=== PATIENT | female | born 1960 | race Asian ===

== ENCOUNTER 2020-05-02 11:00 | Outpatient (CLI) | payer OTHER, SELFPAY ==
--- NOTE | ~2020-05-02 | MM_ITS ---
EXAMINATION: MM screening rena BI w wes HISTORY: Screening mammogram TECHNIQUE: Craniocaudal and mediolateral oblique 3-D tomosynthesis images were obtained and synthetic 2-D images were generated. CAD analysis was submitted and interpreted. COMPARISON: 04/29/2018 BREAST PARENCHYMAL COMPOSITION: The breasts are heterogeneously dense, which may obscure small masses . FINDINGS: There is no evidence of suspicious mass, calcification, or architectural distortion to sugg est malignancy in either breast. There has been no suspicious interval change. IMPRESSION: 1. No mammographic evidence of malignancy. 2. Recommend routine screening mammography in one year. BI-RADS Category 1: Negative Reviewed, dictated and finalized at location A. [employer] INSPECTOR
--- NOTE | ~2020-05-02 | US_ITS ---
EXAMINATION: US right upper quadrant DATE: 05/02/2020 11:34 INDICATION: Abnormal liver function tests. TECHNIQUE: Multiple grayscale and Doppler ultrasound images of the abdomen were obtained. COMPARISON: None FINDINGS: The visualized portions of the head, body, and tail of the pancreas are normal. The liver i s normal without focal lesion. No liver surface nodularity. There is normal flow in main portal vein. The gallbladder is normal in size. No gallstones or gallbladder wall thickening. There was no sonogr aphic Navarro sign. The common duct is normal and measures 3 mm. IMPRESSION: 1. Normal right upper quadrant ultrasound. Reviewed, dictated and finalized at location A. [employer]
== END 2020-05-02 11:01 | disposition home or self-care (01) ==
PROVIDERS: PCP Emergency Medicine; Visit Provider Emergency Medicine
DX: Z12.31 Encounter for screening mammogram for malignant neoplasm of breast (principal); R74.8 Abnormal levels of other serum enzymes
CPT/HCPCS: 76705; 77063; 77067

== ENCOUNTER → 2020-08-06 00:34 | Outpatient (CLI) | payer OTHER, SELFPAY ==
[2020-08-06 19:41] LABS: SARS-CoV-2 RNA PCR Negative
== END ==
PROVIDERS: PCP Emergency Medicine; Visit Provider Internal Medicine Critical Care Medicine
DX: Z01.812 Encounter for preprocedural laboratory examination (principal); Z20.822 Contact with and (suspected) exposure to COVID-19
CPT/HCPCS: C9803; U0003; U0005

== ENCOUNTER 2020-08-08 08:35 | Outpatient (CLI) | payer OTHER, SELFPAY ==
--- NOTE | 2020-08-22 15:49 | WPDSLEEPSTUD ---
Sleep Study Date of Study: 08/08/20 Ordering Provider: Peggy Elena MD Interpreting Physician: Peggy Elena MD Sleep Study Type: Polysomnogram Height: 1.59 m Weight: 47.627 kg Body Mass Index: 18.8 [place]: 3 Reason for Sleep Study Difficulty falling asleep Sleep History Brandon Fiore is a 60 year old female with severe difficulty falling asleep. She wakes up throughout the night. She does not snore and no one tells her that she snores loudly. She does not awaken from sleep feeling short of breath, does not awaken with heartburn, belching or coughing. She frequently has trouble sleeping with a cold. She does not wake up gasping for breath at night. She does not have breathing problems at night witnessed by others. She frequently sweats excessively at night. She rarely notices her heart pounding or beating irregularly at night. She does not fall asleep during the day. She rarely falls asleep involuntarily. She does not fall asleep while driving. She does not fall asleep while exerting physical effort. She does not have loss of muscle tone was strong emotion. She rarely has daytime difficulties due to excessive sleepiness. She does not feel paralyzed on waking or falling asleep. She does not have vivid dreamlike scenes upon awakening or falling asleep. She is not afraid to go to sleep. She does not have nightmares. She occasionally remembers her dreams. She frequently has racing thoughts. She rarely feels sad depressed or anxious. She occasionally has muscular tension. She occasionally notices parts of her body jerking. She frequently kicks at night. She frequently has crawling and aching feelings in her legs and leg pain during the night. She rarely has morning jaw pain. She does not grind her teeth during sleep. She is not bothered by pain during the day and is not awakened by pain during the night. She rarely wakes up feeling stiff in the morning, rarely has sore or achy muscles and rarely wakes up with pain in the neck and spine. She has gained 5 lbs in the last year. Normal bedtime is 11:30 p.m. taking 2 hours to fall asleep waking up twice at night with difficulty returning to sleep. She wakes in the morning at 7:00 a.m.. Weekend schedule is the same. She estimates getting only 2-3 hours of sleep at night. She does not take naps. She frequently has morning headaches. Only on occasion does she awaken feeling refreshed. She rarely has daytime sleepiness. She occasionally has memory or concentration problems. [facility] Past Medical History Medical History Anxiety delivery delivered Diabetes Hyperlipidemia Insomnia Sleep disorder Surgical History Surgical History History of cataract surgery Social History Social History Smoking status: Never smoker Alcohol intake: never Substance use: never Medications Home Medications Medication Instructions Recorded Confirmed Type cholecalciferol (vitamin D3) 25 25 mcg PO DAILY 04/15/20 History mcg (1,000 unit) capsule simvastatin 20 mg tablet 20 mg PO DAILY 07/08/20 History Sleep Procedure This test was performed using the [employer] multiple channel system including EOG, EEG, submental EMG, EKG, nasal and oral airflow using thermistors and nasal pressure sensors, chest and abdominal belts for body position data, and pulse oximetry. Video monitoring was also performed. The study was scored using CMS guidelines. She took a Lunesta 1 mg at sleep onset. Sleep Architecture The total recording time was 501.2 minutes. Sleep time is 439.3 minutes. sleep efficiency is 87.6%. Sleep latency is short at 4.9 minutes. REM latency is delayed 159 minutes. She had 46 awakenings and spent 11.5% the study awake after sleep onset, 57 minutes. Sleep architecture showed 8.4% stage 1 sl
[2020-08-25 08:59] VITALS: BMI 18.8
== END 2020-08-08 08:36 | disposition home or self-care (01) ==
LOC: ANHCSM 08:35
PROVIDERS: PCP Emergency Medicine; Visit Provider Internal Medicine Critical Care Medicine
DX: G25.81 Restless legs syndrome (principal); G47.61 Periodic limb movement disorder
CPT/HCPCS: 95810

== ENCOUNTER 2021-05-22 11:18 | Outpatient (CLI) | payer OTHER, SELFPAY ==
--- NOTE | ~2021-05-22 | US_ITS ---
US right upper quadrant INDICATION: Gated liver function tests PROCEDURE: Realtime right upper abdominal ultrasound. COMPARISON: No prior studies for comparison. FINDINGS: The pancreas is normal without focal mass or pancreatic ductal dilation. Liver echotexture is normal without focal mass or intrahepatic biliary dilatation. There is normal directional flow i n the portal vein. The gallbladder is normal without stones, gallbladder wall thickening or pericholecystic fluid. Comm on bile duct measures 2.4 mm. No sonographic Navarro's sign. IMPRESSION: 1: Normal limited abdominal ultrasound. Reviewed, dictated and finalized at location A. [employer] AGENT
== END 2021-05-22 11:19 | disposition home or self-care (01) ==
LOC: ANHIMG 11:23
PROVIDERS: PCP Emergency Medicine; Visit Provider Internal Medicine Gastroenterology
DX: R94.5 Abnormal results of liver function studies (principal)
CPT/HCPCS: 76705

== ENCOUNTER 2022-01-11 10:58 | Outpatient (CLI) | payer OTHER, SELFPAY ==
--- NOTE | ~2022-01-11 | XR_ITS ---
EXAMINATION: XR chest 2V 01/11/2022 11:44 INDICATION: Cough. PROCEDURE: 2 view chest COMPARISON: No prior studies for comparison. FINDINGS: The lungs are clear. The cardiomediastinal silhouette is within normal limits. There are no pleural effusions. There is no pneumothorax suspected. IMPRESSION: 1: NO ACUTE CARDIOPULMONARY DISEASE. Reviewed, dictated and finalized at location A.
--- NOTE | ~2022-01-11 | MM_ITS ---
EXAMINATION: MM screening rena BI w wes HISTORY: Screening mammogram TECHNIQUE: Craniocaudal and mediolateral oblique 3-D tomosynthesis images were obtained and synthetic 2-D images were generated. CAD analysis was submitted and interpreted. COMPARISON: 05/02/2020, 04/29/2018 bilateral screening mammogram examinations BREAST PARENCHYMAL COMPOSITION: The breasts are heterogeneously dense, which may obscure small masses . FINDINGS: There is no evidence of suspicious mass, calcification, or architectural distortion to sugg est malignancy in either breast. There has been no suspicious interval change. IMPRESSION: 1. No mammographic evidence of malignancy. 2. Recommend routine screening mammography in one year. BI-RADS Category 1: Negative Reviewed, dictated and finalized at location A.
== END 2022-01-11 10:59 | disposition home or self-care (01) ==
PROVIDERS: PCP Emergency Medicine; Visit Provider Emergency Medicine
DX: Z12.31 Encounter for screening mammogram for malignant neoplasm of breast (principal); R05.9 Cough, unspecified
CPT/HCPCS: 71046; 77063; 77067

== ENCOUNTER 2023-11-10 15:32 | Outpatient (CLI) | payer OTHER, SELFPAY ==
--- NOTE | ~2023-11-10 | MM_ITS ---
EXAMINATION: MM screening rena BI w wes HISTORY: Screening TECHNIQUE: Craniocaudal and mediolateral oblique 3-D tomosynthesis images were obtained and synthetic 2-D images were generated. CAD analysis was submitted and interpreted. COMPARISON: Comparison to multiple prior studies sequentially, with oldest reviewed study dated 04/20. BREAST PARENCHYMAL COMPOSITION: The breasts are heterogeneously dense, which may obscure small masses . FINDINGS: There is no evidence of suspicious mass, calcification, or architectural distortion to sugg est malignancy in either breast. There has been no suspicious interval change. IMPRESSION: 1. No mammographic evidence of malignancy. 2. Recommend routine screening mammography in one year. BI-RADS Category 1: Negative Reviewed, dictated and finalized at location A.
--- NOTE | ~2023-11-10 | DEXA_ITS ---
Bone Density Report Name: ISHA MIRANDA Age: 63 Sex: Female Ethnicity: White Date of : 1960 Indication: postmenopausal; screening for osteoporosis; Referring Provider: IRA MARIE Study: Bone densitometry was performed. Exam Date: November 10, 2023 Accession number: [id number] Bone Density: Region BMD T-score Z-score Classification AP Spine(L1-L4) 0.866 -1.6 -0.1 Osteopenia Femoral Neck (Left) 0.627 -2.0 -0.6 Osteopenia Total Hip (Left) 0.854 -0.7 0.4 Normal Femoral Neck (Right) 0.675 -1.6 -0.2 Osteopenia Total Hip (Right) 0.863 -0.7 0.4 Normal Total Hip Mean 0.858 -0.7 0.4 Normal World Health Organization criteria for BMD impression classify patients as: Normal (T-score at or above -1.0), Osteopenia (T-score between -1.0 and -2.5), or Osteoporosis (T-score at or below -2.5). 10-year Fracture Risk(1): Major Osteoporotic Fracture 8.9% Hip Fracture 1.2% Reported Risk Factors: [place] (), Neck BMD=0.627, BMI=20.6 (1) FRAX(R) Version 3.08. Fracture probability calculated for an untreated patient. Fracture probability may be lower if the patient has received treatment. Clinical Information Provided by Patient: Has used the following medications: Vitamin D Patient maximum height was 62.0 Menopause Age: 51 Onset of menses at age 17 Number of children 2 Impression: The patient has low bone mass, based on the Left Femoral Neck T-score. The patient has an estimated ten-year risk of hip fracture of 1.2% and an estimated ten-year risk of major fracture of 8.9%, based on the WHO FRAX algorithm. Discussion: BONE DENSITY IS LOW AT ONE OR MORE SKELETAL SITES. This patient's lowest T-score is low at one or more skeletal sites. It meets the World Health Organization's (WHO) criteria for ?low bone mass? (T-score between -1.0 and -2.5). The patient's 10-year risk of fracture as calculated by FRAX is less than the threshold where pharmacological therapy is recommended by the National Osteoporosis Foundation (NOF). However, all treatment decisions require clinical judgment and consideration of individual patient factors, including patient preferences, comorbidities, previous drug use, risk factors not captured in the FRAX model (e.g., frailty, falls, vitamin D deficiency, increased bone turnover, interval significant decline in bone density) and possible under or overestimation of fracture risk by FRAX. The patient should follow a healthful lifestyle (good nutrition with adequate calcium and vitamin D, and appropriate weight-bearing exercise). Follow-Up: Consider repeating this study in 2 to 3 years to reassess this patient's status, or sooner if there is some new clinical indication. Reported by: OLGA on 11/10/2023 4:10:00 PM. Reviewe
== END 2023-11-10 15:33 | disposition home or self-care (01) ==
PROVIDERS: PCP Emergency Medicine; Visit Provider Emergency Medicine
DX: Z12.31 Encounter for screening mammogram for malignant neoplasm of breast (principal); Z78.0 Asymptomatic menopausal state; M85.88 Other specified disorders of bone density and structure, other site; M85.852 Other specified disorders of bone density and structure, left thigh; M85.851 Other specified disorders of bone density and structure, right thigh
CPT/HCPCS: 77063; 77067; 77080